=== PATIENT | male | born 1935 | race Caucasian/White ===

== ENCOUNTER 2016-12-26 03:06 | Inpatient (IN) | payer OTHER, BC ==
[~2016-12-26] VITALS: Ht 172.7 cm; Wt 105.4 kg
[2016-12-26] VITALS (8 sets, daily range): BP systolic 102–141; BP diastolic 51–64; Ht 172.7 cm; Wt 105.4 kg
[~2016-12-26 03:06] MED LIST: CARAFATE1 GM PO; COL100 PO; FERROUS SULFAT325 M2 PO; NORCO1 TA2 PO; PRILOSEC40 MG PO; VITC PO
[2016-12-26 04:21] LABS: CALCIUM 7.7 mg/dL (8.5-10.1); CARBON DIOXIDE 21.6 mmol/L (21-32); CHLORIDE SERUM 109 mmol/L (98-107); CREATININE SERUM 1.5 mg/dL (0.7-1.3); GLUCOSE SERUM 311 mg/dL (74-106); POTASSIUM SERUM 4.6 mmol/L (3.5-5.1); SODIUM SERUM 139 mmol/L (136-145)
[2016-12-26 04:25] LABS: BASOPHIL % 0 % (0-2); PLATELET COUNT 55 x10^3mcL (130-400); RED CELL DISTRIBUTION WIDTH 14.7 % (11.5-14.5)
[2016-12-26 04:26] LABS: ALBUMIN 2.4 g/dL (3.4-5.0); ALKALINE PHOSPHATASE 52 U/L (46-116); ALT/SGPT 19 U/L (16-63); AST/SGOT 28 U/L (15-37); BILIRUBIN TOTAL 0.36 mg/dL (0.20-1.00); TOTAL PROTEIN, SERUM 5.1 g/dL (6.4-8.2)
[2016-12-26 07:32] LABS: T3 TOTAL 1.13 ng/mL
[2016-12-26 07:57] LABS: MAGNESIUM 1.7 mg/dL (1.8-2.4); PHOSPHOROUS 2.7 mg/dL (2.5-4.9)
[2016-12-26 08:04] LABS: FREE T4 1.17 ng/dL (0.76-1.46); FREE THYROXINE INDEX 2.5 ug/dL (1.4-4.5); T4(THYROXINE) 6.7 ug/dL (4.7-13.3)
[2016-12-26 08:06] LABS: CHOLESTEROL/HDL RATIO 3.6
[2016-12-26 10:45] LABS: BASOPHIL % 0 % (0-2); PLATELET COUNT 50 x10^3mcL (130-400); RED CELL DISTRIBUTION WIDTH 14.9 % (11.5-14.5)
[2016-12-26 19:00] LABS: CARBON DIOXIDE 19.6 mmol/L (21-32); CHLORIDE SERUM 115 mmol/L (98-107); CREATININE SERUM 1.3 mg/dL (0.7-1.3); GLUCOSE SERUM 214 mg/dL (74-106); POTASSIUM SERUM 5.1 mmol/L (3.5-5.1); SODIUM SERUM 149 mmol/L (136-145)
[2016-12-26 19:18] LABS: PLATELET COUNT 68 x10^3mcL (130-400); RED CELL DISTRIBUTION WIDTH 15.6 % (11.5-14.5)
[2016-12-26 19:47] LABS: BAND NEUTROPHIL 0 % (0-10); BASOPHIL 0 % (0-2); MONOCYTE 15 % (0-7); SEGMENTED NEUTROPHILS 77 % (37-75)
[2016-12-26 19:48] LABS: rbc morphology (normal/abnorm) ABNORMAL (NORMAL)
[2016-12-26 19:50] LABS: PLATELET MORPHOLOGY PLATELETS DECREASED
[2016-12-27] VITALS (7 sets, daily range): BP systolic 113–137; BP diastolic 24–59
[2016-12-27 01:03] LABS: BASOPHIL % 0.1 % (0-2)
[2016-12-27 01:04] LABS: PLATELET COUNT 54 x10^3mcL (130-400); RED CELL DISTRIBUTION WIDTH 15.4 % (11.5-14.5)
[2016-12-27 01:22] LABS: microscopic required? YES; urine erythrocyte TRACE (NEGATIVE)
[2016-12-27 05:53] LABS: CALCIUM 7.3 mg/dL (8.5-10.1); CARBON DIOXIDE 26.9 mmol/L (21-32); CHLORIDE SERUM 120 mmol/L (98-107); CREATININE SERUM 1.1 mg/dL (0.7-1.3); GLUCOSE SERUM 146 mg/dL (74-106); MAGNESIUM 2.1 mg/dL (1.8-2.4); POTASSIUM SERUM 4.4 mmol/L (3.5-5.1); SODIUM SERUM 151 mmol/L (136-145)
[2016-12-27 06:04] LABS: BASOPHIL % 0.1 % (0-2); PLATELET COUNT 50 x10^3mcL (130-400); RED CELL DISTRIBUTION WIDTH 15.6 % (11.5-14.5)
[2016-12-27 06:07] LABS: rbc morphology (normal/abnorm) ABNORMAL (NORMAL)
[2016-12-27 14:02] LABS: BASOPHIL % 0.1 % (0-2)
[2016-12-27 14:04] LABS: PLATELET COUNT 39 x10^3mcL (130-400); RED CELL DISTRIBUTION WIDTH 15.6 % (11.5-14.5)
[2016-12-27 20:29] LABS: BASOPHIL % 0.1 % (0-2)
[2016-12-27 20:33] LABS: PLATELET COUNT 39 x10^3mcL (130-400)
[2016-12-27 20:42] LABS: rbc morphology (normal/abnorm) ABNORMAL (NORMAL)
[2016-12-28] VITALS (9 sets, daily range): BP systolic 102–140; BP diastolic 25–63
[2016-12-28 02:38] LABS: BASOPHIL % 0.2 % (0-2)
[2016-12-28 02:42] LABS: RED CELL DISTRIBUTION WIDTH 15.8 % (11.5-14.5)
[2016-12-28 02:46] LABS: rbc morphology (normal/abnorm) ABNORMAL (NORMAL)
[2016-12-28 02:48] LABS: PLATELET COUNT 35 x10^3mcL (130-400)
[2016-12-28 06:43] LABS: CALCIUM 7.5 mg/dL (8.5-10.1); CARBON DIOXIDE 28.2 mmol/L (21-32); CHLORIDE SERUM 113 mmol/L (98-107); CREATININE SERUM 0.9 mg/dL (0.7-1.3); GLUCOSE SERUM 124 mg/dL (74-106); POTASSIUM SERUM 3.7 mmol/L (3.5-5.1); SODIUM SERUM 145 mmol/L (136-145)
[2016-12-28 09:05] LABS: BASOPHIL % 0 % (0-2); RED CELL DISTRIBUTION WIDTH 15.9 % (11.5-14.5)
[2016-12-28 09:07] LABS: PLATELET COUNT 38 x10^3mcL (130-400)
[2016-12-28 12:18] LABS: rbc morphology (normal/abnorm) ABNORMAL (NORMAL)
[2016-12-28 14:33] LABS: IRON 88 ug/dL (65-170)
[2016-12-28 14:35] LABS: TOTAL IRON BINDING CAPACITY 219 ug/dL (250-450)
[2016-12-28 15:26] LABS: RED BLOOD CELLS 2.71 M/mm3 (4.52-5.90)
[2016-12-28 19:57] LABS: BASOPHIL % 0.2 % (0-2)
[2016-12-28 20:06] LABS: PLATELET COUNT 39 x10^3mcL (130-400)
[2016-12-28] MEDS ORDERED: FERROUS SULFAT325 M2 PO (22:32)
[2016-12-28] MEDS ORDERED: VITC PO (22:32)
[2016-12-28] MEDS ORDERED: COL100 PO (22:32)
[2016-12-28] MEDS ORDERED: CARAFATE1 GM PO (22:32)
== END 2016-12-28 22:43 | disposition home or self-care (01) | DRG 377 ==
LOC: ED 03:06 → IC 05:49 → DU 05:49 → IC 11:25 → DU 12-27 07:27
PROVIDERS: Family Medicine; Family Medicine Sports Medicine; Internal Medicine Gastroenterology; Student in an Organized Health Care Education/Training Program; ADMIT Student in an Organized Health Care Education/Training Program
PROC: 0W3P8ZZ Control Bleeding in Gastrointestinal Tract, Via Natural or Artificial Opening Endoscopic (ICD-10-PCS; principal; 2016-12-26 10:30)
PROC: 0W3P8ZZ Control Bleeding in Gastrointestinal Tract, Via Natural or Artificial Opening Endoscopic (ICD-10-PCS; 2016-12-27 12:00)
PROC: 0DB78ZX Excision of Stomach, Pylorus, Via Natural or Artificial Opening Endoscopic, Diagnostic (ICD-10-PCS; 2016-12-27 12:00)
DX: K28.4 Chronic or unspecified gastrojejunal ulcer with hemorrhage (principal); E43 Unspecified severe protein-calorie malnutrition; N17.0 Acute kidney failure with tubular necrosis; D62 Acute posthemorrhagic anemia; E87.0 Hyperosmolality and hypernatremia; K22.6 Gastro-esophageal laceration-hemorrhage syndrome; E83.42 Hypomagnesemia; R73.03 Prediabetes; E87.8 Other disorders of electrolyte and fluid balance, not elsewhere classified; M19.90 Unspecified osteoarthritis, unspecified site; E66.9 Obesity, unspecified; Z68.33 Body mass index [BMI] 33.0-33.9, adult
CPT/HCPCS: 43235; 45378; 82962; 83880; 84439; 90658; C9113; J0171; J1200; J1610; J2250; J2310; J2354; J2405; J2543; J2765; J2916; J3010; J3475; J3490; J7030; J7040; J7050; P9016; Q0092; Q0163